=== PATIENT | male | born 1950 | race Caucasian/White ===

== ENCOUNTER 2017-02-25 10:23 | Day surgery (SDC) | payer BC ==
[~2017-02-25 10:23] MED LIST: VERSED ONE
[2017-02-25] MEDS ORDERED: TETRACAINE 0.5% OPHTH 1 DOSE AFFEYE ONE ×3 (11:28→14:51)
[2017-02-25] MEDS ORDERED: VIGAMOX 0.5% OPHTH 1 DOSE AFFEYE ONE ×5 (11:30→15:09)
[2017-02-25] MEDS ORDERED: PROLENSA OPHTH 1 DOSE AFFEYE ONE (11:42)
[2017-02-25] MEDS ORDERED: ALPHAGAN-P OPHTH 1 DOSE AFFEYE ONE (11:45)
[2017-02-25] MEDS ORDERED: CYCLOGYL 1% OPHTH 1 DOSE OP ONE ×5 (11:50→12:05)
[2017-02-25] MEDS ORDERED: MYDRIACIL OPHTH 1 DOSE AFFEYE ONE ×5 (11:50→12:05)
[2017-02-25] MEDS ORDERED: AK-DILATE 2.5% OPHTH 1 DOSE OP ONE ×5 (11:50→12:05)
[2017-02-25] MEDS ORDERED: NS 500 ML IV 500 ML IV ONE (12:08)
[2017-02-25] MEDS ORDERED: BETADINE OPHTH SOLN 5% EACHEYE ONE (14:47)
[2017-02-25] MEDS ORDERED: DUOVISC IO ONE (14:52)
[2017-02-25] MEDS ORDERED: ADRENALINE CHL INJ IJ ONE (14:52)
[2017-02-25] MEDS ORDERED: XYLOCAINE-MPF 1% IJ ONE (14:52)
[2017-02-25] MEDS ORDERED: BSS OPHTH (PLAIN) 500 ML with VANCOMYCIN HCL 500 MG VIAL 25 MG, ADRENALINE CHL INJ 1 MG IR ONE ×3 (14:53)
[2017-02-25 15:34] VITALS: BP 120/69
== END 2017-02-25 15:30 | disposition home or self-care (01) ==
LOC: SURG1 10:23
PROVIDERS: ATTEND Ophthalmology
PROC: 08RK3JZ Replacement of Left Lens with Synthetic Substitute, Percutaneous Approach (ICD-10-PCS; principal; 2017-02-25 20:30)
PROC: 08DK3ZZ Extraction of Left Lens, Percutaneous Approach (ICD-10-PCS; principal; 2017-02-25 20:30)
DX: H25.12 Age-related nuclear cataract, left eye (principal)
CPT/HCPCS: A4217; J0170; J2250; J3370

== ENCOUNTER 2017-03-04 11:21 | Day surgery (SDC) | payer BC ==
[2017-03-04] MEDS ORDERED: NS 500 ML IV 500 ML IV ONE (11:25)
[2017-03-04] MEDS ORDERED: TETRACAINE 0.5% OPHTH 1 DOSE AFFEYE ONE ×2 (11:30→11:51)
[2017-03-04] MEDS ORDERED: VIGAMOX 0.5% OPHTH 1 DOSE AFFEYE ONE ×5 (11:35→12:20)
[2017-03-04] MEDS ORDERED: PROLENSA OPHTH 1 DOSE AFFEYE ONE (11:46)
[2017-03-04] MEDS ORDERED: ALPHAGAN-P OPHTH 1 DOSE AFFEYE ONE (11:47)
[2017-03-04] MEDS ORDERED: AK-DILATE 2.5% OPHTH 1 DOSE OP ONE ×3 (11:48→11:50)
[2017-03-04] MEDS ORDERED: MYDRIACIL OPHTH 1 DOSE AFFEYE ONE ×3 (11:48→11:50)
[2017-03-04] MEDS ORDERED: CYCLOGYL 1% OPHTH 1 DOSE OP ONE ×3 (11:48→11:50)
[2017-03-04] MEDS ORDERED: BETADINE OPHTH SOLN 5% EACHEYE ONE (11:51)
[2017-03-04] MEDS ORDERED: BSS OPHTH (PLAIN) 500 ML with VANCOMYCIN HCL 500 MG VIAL 25 MG, ADRENALINE CHL INJ 1 MG IR ONE ×3 (12:11)
[2017-03-04] MEDS ORDERED: DUOVISC IO ONE (12:11)
[2017-03-04] MEDS ORDERED: XYLOCAINE-MPF 1% IJ ONE (12:11)
[2017-03-04] MEDS ORDERED: ADRENALINE CHL INJ IJ ONE (12:11)
[2017-03-04 12:43] VITALS: BP 120/61
== END 2017-03-04 12:43 | disposition home or self-care (01) ==
LOC: SURG1 11:21
PROVIDERS: ATTEND Ophthalmology
PROC: 08DK3ZZ Extraction of Left Lens, Percutaneous Approach (ICD-10-PCS; principal; 2017-03-04 16:30)
PROC: 08RK3JZ Replacement of Left Lens with Synthetic Substitute, Percutaneous Approach (ICD-10-PCS; principal; 2017-03-04 16:30)
DX: H25.12 Age-related nuclear cataract, left eye (principal)
CPT/HCPCS: A4217; J0170; J3370